=== PATIENT | male | born 1960 | race Caucasian/White ===

== ENCOUNTER 2023-06-03 21:24 | Emergency (ER) | payer OTHER ==
[~2023-06-03] VITALS: Ht 180.3 cm; Wt 104.5 kg
[2023-06-03 21:42] VITALS: BP 172/93; TEMP 98.2
[2023-06-03] MEDS ORDERED: CEPHALEXIN500 M1 PO (22:48)
[2023-06-03 23:03] VITALS: PULSE 74
== END 2023-06-03 23:04 | disposition home or self-care (01) ==
LOC: COL.ER 21:24
DX: S61.216A Laceration without foreign body of right little finger without damage to nail, initial encounter (principal); W23.1XXA Caught, crushed, jammed, or pinched between stationary objects, initial encounter